=== PATIENT | female | born 1985 | race African-American/Black ===

== ENCOUNTER 2017-03-10 09:50 | Emergency (ER) | payer SELFPAY, OTHER ==
[2017-03-10] MEDS ORDERED: CONTRAST GIVEN MC (11:00)
[2017-03-10] MEDS: IOHEXOL 240 MG/ML 50ML VIAL. PO (11:00)
[2017-03-10 11:15] LABS: ADD MAN DIFF? NO
[2017-03-10 11:20] LABS: URINE HCG POC HCG NEGATIVE (Negative)
[2017-03-10 11:24] LABS: BILIRUBIN,URINE NEGATIVE (NEG); CLARITY,URINE CLEAR; COLOR,URINE YELLOW; GLUCOSE,URINE NEGATIVE (NEG); NITRITE,URINE NEGATIVE (NEG); PH,URINE 7.5; PROTEIN,URINE NEGATIVE (NEG-TRACE); UROBILINOGEN,URINE 0.2 mg/dL (0.2 mg/dL)
[2017-03-10 11:25] LABS: ANION GAP 10 (6-14); BASO # 0.1 x10^3/uL (0.0-0.2); BASO % 1 % (0-3); BLOOD UREA NITROGEN 8 mg/dL (7-20); CALCIUM 9.1 mg/dL (8.5-10.1); CARBON DIOXIDE 29 mmol/L (21-32); CHLORIDE 103 mmol/L (98-107); CREATININE 0.8 mg/dL (0.6-1.0); EOS # 0.2 x10^3/uL (0.0-0.7); EOS % 2 % (0-3); GFR 101.9; GLUCOSE 89 mg/dL (70-99); HEMATOCRIT 40.5 % (36.0-47.0); LYMPH % 22 % (24-48); MEAN CORPUSCULAR HEMOGLOBIN 28 pg (25-35); MEAN CORPUSCULAR HGB CONC 32 g/dL (31-37); MEAN CORPUSCULAR VOLUME 88 fL (79-100); MONO # 0.6 x10^3/uL (0.0-1.1); MONO % 7 % (0-9); NEUT # 6.1 x10^3uL (1.8-7.7); NEUT % 68 % (31-73); PLATELET COUNT 291 x10^3/uL (140-400); POTASSIUM 3.7 mmol/L (3.5-5.1); RED BLOOD COUNT 4.63 x10^6/uL (3.50-5.40); RED CELL DISTRIBUTION WIDTH 13.1 % (11.5-14.5); SODIUM 142 mmol/L (136-145)
[2017-03-10 11:27] LABS: PARTIAL THROMBOPLASTIN TIME 26 SEC (24-38); PROTHROMBIN TIME PATIENT 12.2 SEC (11.7-14.0)
[2017-03-10 11:31] LABS: ALK PHOS 56 U/L (46-116); ALT (SGPT) 23 U/L (14-59); AST (SGOT) 18 U/L (15-37); DIRECT BILIRUBIN 0.1 mg/dL (0.0-0.2); LIPASE 84 U/L (73-393); TOTAL BILIRUBIN 0.3 mg/dL (0.2-1.0)
[2017-03-10 11:34] LABS: BACTERIA,URINE FEW /HPF (0-FEW); RBC,URINE 0 /HPF (0-2)
[2017-03-10 11:35] LABS: SQUAMOUS EPITHELIAL CELL,UR MOD /LPF
[2017-03-10 11:45] LABS: CREATINE KINASE 138 U/L (26-192)
[2017-03-10 11:46] LABS: CKMB MASS < 0.5 ng/mL (0.0-3.6)
[2017-03-10] MEDS: IOHEXOL 300 MG/ML 100ML VIAL. IV (12:51)
== END 2017-03-10 13:49 | disposition home or self-care (01) ==
LOC: ER 09:50
DX: R10.33 Periumbilical pain (principal); J45.909 Unspecified asthma, uncomplicated
CPT/HCPCS: 36415; 74177; 80048; 80076; 81001; 81025; 82553; 83690; 85025; 85610; 85730; 87086; 99285-25; Q9966; Q9967